=== PATIENT | male | born 1955 | race Caucasian/White ===

== ENCOUNTER 2018-01-29 08:30 | Observation (INO) | payer BC, OTHER ==
[2018-01-29] MEDS ORDERED: Ertapenem 1 GM Vial IVPUSH ONE (08:56)
--- NOTE | 2018-01-29 09:01 | EDM.PDOC ---
ED HPI GENERAL MEDICAL PROBLEM - General Chief Complaint: Skin Complaint Stated Complaint: DIABETIC-SWOLLEN FOOT Time Seen by Provider: 01/29/18 08:45 Source of Information: Reports: Patient History Limitations: Reports: No Limitations - History of Present Illness INITIAL COMMENTS - FREE TEXT/NARRATIVE: Pt. presents to ER with complaints of swelling and erythema to the L foot. Denies any fever or chills. States that he has had an ulcer on the side of the foot for some time, but noticed the erythema and swelling this AM. He is a diabetic, and only takes Metformin. Denies any chest pain or shortness of breath. He states that he does smoke and drink daily as well. Onset: Today Duration: Constant Location: Reports: Lower Extremity, Left Quality: Reports: Burning Right Feet Pain Score (Numeric/FACES): 3 - Related Data Allergies Allergy/AdvReac Type Severity Reaction Status Date / Time venom-honey bee Allergy Swelling Verified 01/29/18 09:18 [bee venom (honey bee)] hydrochlorothiazide AdvReac Muscle Verified 01/29/18 10:10 [From Dyazide] Aches triamterene [From Dyazide] AdvReac Muscle Verified 01/29/18 10:10 Aches Home Meds: Home Meds Lisinopril [Prinivil] 20 mg PO DAILY 06/26/13 [History] metFORMIN [Glucophage] 850 mg PO BID 06/26/13 [History] Aspirin [Children's Aspirin] 81 mg PO DAILY 04/01/14 [History] Cyanocobalamin (Vitamin B-12) [B-12] 500 mcg PO DAILY 04/01/14 [History] Carboxymethyl/Gly/Poly80/Pf [Refresh Optive Advanced Drops] 1 drop EYEBOTH BEDTIME 01/29/18 [History] Cinnamon Bark [Cinnamon] 1,000 mg PO DAILY 01/29/18 [History] Past Medical History HEENT History: Reports: Other (See Below) Other HEENT History: presbyopia, tinnitis both ears Cardiovascular History: Reports: High Cholesterol, Hypertension Respiratory History: Reports: COPD Gastrointestinal History: Reports: GERD Musculoskeletal History: Reports: Osteoarthritis Endocrine/Metabolic History: Reports: Diabetes, Type II, Other (See Below) Other Endocrine/Metabolic History: Vitamin B12 deficiency Social & Family History - Tobacco Use Smoking Status *Q: Current Every Day Smoker Years of Tobacco use: 50 Packs/Tins Daily: 1 - Alcohol Use Days Per Week of Alcohol Use: 7 Number of Drinks Per Day: 2 Total Drinks Per Week: 14 - Recreational Drug Use Recreational Drug Use: No ED ROS GENERAL - Review of Systems Review Of Systems: See Below Constitutional: Reports: No Symptoms HEENT: Reports: No Symptoms Respiratory: Reports: No Symptoms Cardiovascular: Reports: No Symptoms Endocrine: Reports: Other GI/Abdominal: Reports: No Symptoms : Reports: No Symptoms Musculoskeletal: Reports: Other (L foot pain, swelling) Skin: Reports: Erythema, Wound Neurological: Reports: No Symptoms Psychiatric: Reports: No Symptoms Hematologic/Lymphatic: Reports: No Symptoms ED EXAM, SKIN/RASH Exam: See Below Exam Limited By: No Limitations General Appearance: Alert, WD/WN, No Apparent Distress Respiratory/Chest: No Respiratory Distress, Lungs Clear, Normal Breath Sounds, No Accessory Muscle Use, Chest Non-Tender Cardiovascular: Normal Peripheral Pulses, Regular Rate, Rhythm, No Edema, No Gallop, No JVD, No Murmur, No Rub Peripheral Pulses: 3+: Posterior Tibial (L), Dorsalis Pedis (L) Extremities: Increased Warmth, Other (erythema and edema to top of L foot surrounding a dried, closed ulcer) Course - Vital Signs Last Recorded V/S: Last Vital Signs Temp 36.7 C 01/29/18 10:15 Pulse 92 01/29/18 10:15 Resp 16 01/29/18 10:15 BP 125/67 01/29/18 10:15 Pulse Ox 97 01/29/18 10:15 - Orders/Labs/Meds Orders: Active Orders 24 hr Category Date Time Status CULTURE BLOOD [BC] Stat Lab 01/29/18 08:59 Received CULTURE BLOOD [BC] Stat Lab 01/29/18 09:05 Received Sodium Chloride 0.9% [Saline Flush] Med 01/29/18 08:48 Active 10 ml FLUSH ASDIRECTED PRN Blood Culture x2 Reflex Set [OM.PC] Stat Oth 01/29/18 08:48 Ordered Peripheral IV Insertion Adult [OM.PC] Routine Oth 01/29/18 08:48 Ordered Medication Orders Enoxaparin Sodium (Lovenox) 40 mg SUBCUT DAILY@1200 [place] Vancomycin HCl 1,750 mg/ (Sodium Chloride) 250 mls @ 143 mls/hr IV STAT ONE Stop: 01/29/18 11:45 Vancomycin HCl 1,750 mg/ (Sodium Chloride) 250 mls @ 143 mls/hr IV Q12H [place] Ertapenem 1 gm/ Sodium (Chloride) 100 mls @ 200 mls/hr IV Q24H [place] Sodium Chloride (Saline Flush) 10 ml FLUSH ASDIRECTED PRN PRN Reason: Keep Vein Open Last Admin: 01/29/18 09:07 Dose: 10 ml Labs: Laboratory Tests 01/29/18 01/29/18 01/29/18 Range/Units 09:05 09:05 09:05 WBC 7.9 (4.0-10.0) x10^3/uL RBC 4.67 (4.5-6.0) x10^6/uL Hgb 14.8 (14.0-18.0) g/dL Hct 43.1 (40.0-52.0) % MCV 92.3 (78.0-93.0) fL MCH 31.7 (26.0-32.0) pg MCHC 34.3 (32.0-36.0) g/dL RDW Coeff of Skip 14.0 (10.0-15.0) % Plt Count 149 (130-400) x10^3/uL Neut % (Auto) 65.6 (50.0-80.0) % Lymph % (Auto) 22.6 L (25.0-50.0) % [place] % (Auto) 9.0 (2.0-11.0) % Eos % (Auto) 2.7 (0.0-4.0) % Baso % (Auto) 0.1 L (0.2-1.2) % PT 9.7 (9.6-11.4) SEC INR 0.9 L (2.0-3.5) Sodium 138 (136-145) mmol/L Potassium 3.8 (3.5-5.1) mmol/L Chloride 102 (98-107) mmol/L Carbon Dioxide 27 (21-32) mmol/L Anion Gap 12.8 (10-20) mmol/L BUN 15 (7-18) mg/dL Creatinine 1.1 (0.70-1.30) mg/dL Est Cr Clr Drug Dosing 77.68 mL/min Estimated GFR (MDRD) > 60 Glucose 249 H (74-106) mg/dL Lactic Acid (0.4-2.0) mmol/L Calcium 8.6 (8.5-10.1) mg/dL Corrected Calcium 9.24 (8.5-10.1) mg/dL Total Bilirubin 1.3 H (0.2-1.0) mg/dL AST 11 L (15-37) U/L ALT 20 (16-63) U/L Alkaline Phosphatase 48 (46-116) U/L C-Reactive Protein 7.9 H (<=0.9) mg/dL Total Protein 7.1 (6.4-8.2) g/dL Albumin 3.2 L (3.4-5.0) g/dL Globulin 3.9 Albumin/Globulin Ratio 0.82 / Range/Units 09:05 WBC (4.0-10.0) x10^3/uL RBC (4.5-6.0) x10^6/uL Hgb (14.0-18.0) g/dL Hct (40.0-52.0) % MCV (78.0-93.0) fL MCH (26.0-32.0) pg MCHC (32.0-36.0) g/dL RDW Coeff of Skip (10.0-15.0) % Plt Count (130-400) x10^3/uL Neut % (Auto) (50.0-80.0) % Lymph % (Auto) (25.0-50.0) % [place] % (Auto) (2.0-11.0) % Eos % (Auto) (0.0-4.0) % Baso % (Auto) (0.2-1.2) % PT (9.6-11.4) SEC INR (2.0-3.5) Sodium (136-145) mmol/L Potassium (3.5-5.1) mmol/L Chloride (98-107) mmol/L Carbon Dioxide (21-32) mmol/L Anion Gap (10-20) mmol/L BUN (7-18) mg/dL Creatinine (0.70-1.30) mg/dL Est Cr Clr Drug Dosing mL/min Estimated GFR (MDRD) Glucose (74-106) mg/dL Lactic Acid 2.5 H* (0.4-2.0) mmol/L Calcium (8.5-10.1) mg/dL Corrected Calcium (8.5-10.1) mg/dL Total Bilirubin (0.2-1.0) mg/dL AST (15-37) U/L ALT (16-63) U/L Alkaline Phosphatase (46-116) U/L C-Reactive Protein (<=0.9) mg/dL Total Protein (6.4-8.2) g/dL Albumin (3.4-5.0) g/dL Globulin Albumin/Globulin Ratio Meds: Medications Generic Name Dose Route Start Last Admin Trade Name Freq PRN Reason Stop Dose Admin Enoxaparin Sodium 40 mg 01/29/18 12:00 Lovenox SUBCUT DAILY@1200 [place] Vancomycin HCl 1,750 mg/ 250 mls @ 143 mls/hr 01/29/18 10:01 Sodium Chloride IV 01/29/18 11:45 STAT ONE Vancomycin HCl 1,750 mg/ 250 mls @ 143 mls/hr 01/29/18 22:30 Sodium Chloride IV Q12H [place] Ertapenem 1 gm/ Sodium 100 mls @ 200 mls/hr 01/30/18 09:00 Chloride IV Q24H [place] Sodium Chloride 10 ml 01/29/18 08:48 01/29/18 09:07 Saline Flush FLUSH 10 ml ASDIRECTED PRN Administration Keep Vein Open Discontinued Medications Generic Name Dose Route Start Last Admin Trade Name Freq PRN Reason Stop Dose Admin Ertapenem 1 gm 01/29/18 08:56 01/29/18 09:01 Invanz IVPUSH 01/29/18 08:57 1 gm STAT ONE Administration Departure - Departure Time of Disposition: 10:26 Disposition: Refer to Observation Clinical Impression: Cellulitis, Diabetic foot ulcer - Discharge Information - My Orders Last 24 Hours: My Active Orders 01/29/18 08:48 Sodium Chloride 0.9% [Saline Flush] 10 ml FLUSH ASDIRECTED PRN Blood Culture x2 Reflex Set [OM.PC] Stat Peripheral IV Insertion Adult [OM.PC] Routine 01/29/18 08:59 CULTURE BLOOD [BC] Stat 01/29/18 09:05 CULTURE BLOOD [BC] Stat - Assessment/Plan Last 24 Hours: My Active Orders 01/29/18 08:48 Sodium Chloride 0.9% [Saline Flush] 10 ml FLUSH ASDIRECTED PRN Blood Culture x2 Reflex Set [OM.PC] Stat Peripheral IV Insertion Adult [OM.PC] Routine 01/29/18 08:59 CULTURE BLOOD [BC] Stat 01/29/18 09:05 CULTURE BLOOD [BC] Stat Plan: He will be admitted observation. Did discuss acute admission with Dr. Peralta but she declined. Will start Invanz 1 gm daily and Vancomycin 1750mg twice daily. Pharmacy to manage vanco dosing. He is a code 1. Lovenox for DVT prophylaxis. Will trend his lactic acid and recheck it in 6 hours.
[2018-01-29] MEDS: Sodium Chloride 0.9% 10 ML Syringe FLUSH PRN (09:07)
[2018-01-29 09:32] LABS: CHLORIDE,CL 102 mmol/L (98-107); SODIUM,NA 138 mmol/L (136-145)
[2018-01-29 09:44] LABS: ANION GAP 12.8 mmol/L (10-20)
[2018-01-29] MEDS ORDERED: Nicotine 14 MG/24 Hr Patch TRDERM SCH (11:30)
[2018-01-29] MEDS ORDERED: Enoxaparin 40 MG/0.4 ML Syringe SUBCUT SCH (12:00)
[2018-01-30] MEDS: Sodium Chloride 0.9% 10 ML Syringe FLUSH PRN ×2 (00:12→08:14)
--- NOTE | 2018-01-30 00:37 | PCM.PN ---
- General Info Date of Service: 01/30/18 Admission Dx/Problem (Free Text): left foot cellulitis Subjective Update: Pt was admitted to observation for a right lower extremity cellulitis. Patient is brought to the emergency department with increasing redness and swelling of the right lower extremity and also Noted the sore on his pinky toe getting larger. He states he is noticed over the course of the past couple days that his foot has increased in swelling and redness. She does not have much feeling not right lower extremity for peripheral neuropathy secondary to his type 2 diabetes. He states the main concern that he noticed was a large name sore on his right pinky toe that was accumulating more fluid. he currently denies any fever. He states he is not sure if he has ever experienced a fever with this foot concern for he does not check his temperature. He has been chilled the past couple days despite the warm temperatures. currently he is being treated with vancomycin and Invanz for empiric treatment and possible MRSA coverage. Patient does not have a history of MRSA and currently does not have any draining wounds to culture. Patient has been tolerating a diabetic diet, urinating, and ambulating without complications or concerns. Functional Status: Reports: Pain Controlled, Tolerating Diet, Urinating - Review of Systems General: Reports: No Symptoms HEENT: Reports: No Symptoms Pulmonary: Reports: No Symptoms Cardiovascular: Reports: No Symptoms Gastrointestinal: Reports: No Symptoms Genitourinary: Reports: No Symptoms Musculoskeletal: Reports: Foot Pain Skin: Reports: No Symptoms Neurological: Reports: No Symptoms Psychiatric: Reports: No Symptoms - Patient Data Vitals - Most Recent: Last Vital Signs Temp 36.0 C 01/29/18 22:00 Pulse 96 01/29/18 22:00 Resp 20 01/29/18 22:00 BP 121/61 01/29/18 22:00 Pulse Ox 96 01/29/18 22:00 Weight - Most Recent: 138.527 kg I&O - Last 24 Hours: Intake & Output 01/29/18 01/29/18 01/30/18 14:59 22:59 06:59 Intake Total 360 360 285 Output Total 500 Balance 360 -140 285 Lab Results Last 24 Hours: Laboratory Results - last 24 hr 01/29/18 01/29/18 01/29/18 Range/Units 09:05 09:05 09:05 WBC 7.9 (4.0-10.0) x10^3/uL RBC 4.67 (4.5-6.0) x10^6/uL Hgb 14.8 (14.0-18.0) g/dL Hct 43.1 (40.0-52.0) % MCV 92.3 (78.0-93.0) fL MCH 31.7 (26.0-32.0) pg MCHC 34.3 (32.0-36.0) g/dL RDW Coeff of Skip 14.0 (10.0-15.0) % Plt Count 149 (130-400) x10^3/uL Neut % (Auto) 65.6 (50.0-80.0) % Lymph % (Auto) 22.6 L (25.0-50.0) % [place] % (Auto) 9.0 (2.0-11.0) % Eos % (Auto) 2.7 (0.0-4.0) % Baso % (Auto) 0.1 L (0.2-1.2) % PT 9.7 (9.6-11.4) SEC INR 0.9 L (2.0-3.5) Sodium 138 (136-145) mmol/L Potassium 3.8 (3.5-5.1) mmol/L Chloride 102 (98-107) mmol/L Carbon Dioxide 27 (21-32) mmol/L Anion Gap 12.8 (10-20) mmol/L BUN 15 (7-18) mg/dL Creatinine 1.1 (0.70-1.30) mg/dL Est Cr Clr Drug Dosing 77.68 mL/min Estimated GFR (MDRD) > 60 Glucose 249 H (74-106) mg/dL POC Glucose (74-106) mg/dL Lactic Acid (0.4-2.0) mmol/L Calcium 8.6 (8.5-10.1) mg/dL Corrected Calcium 9.24 (8.5-10.1) mg/dL Total Bilirubin 1.3 H (0.2-1.0) mg/dL AST 11 L (15-37) U/L ALT 20 (16-63) U/L Alkaline Phosphatase 48 (46-116) U/L C-Reactive Protein 7.9 H (<=0.9) mg/dL Total Protein 7.1 (6.4-8.2) g/dL Albumin 3.2 L (3.4-5.0) g/dL Globulin 3.9 Albumin/Globulin Ratio 0.82 01/29/18 01/29/18 01/29/18 Range/Units 09:05 15:08 16:41 WBC (4.0-10.0) x10^3/uL RBC (4.5-6.0) x10^6/uL Hgb (14.0-18.0) g/dL Hct (40.0-52.0) % MCV (78.0-93.0) fL MCH (26.0-32.0) pg MCHC (32.0-36.0) g/dL RDW Coeff of Skip (10.0-15.0) % Plt Count (130-400) x10^3/uL Neut % (Auto) (50.0-80.0) % Lymph % (Auto) (25.0-50.0) % [place] % (Auto) (2.0-11.0) % Eos % (Auto) (0.0-4.0) % Baso % (Auto) (0.2-1.2) % PT (9.6-11.4) SEC INR (2.0-3.5) Sodium (136-145) mmol/L Potassium (3.5-5.1) mmol/L Chloride (98-107) mmol/L Carbon Dioxide (21-32) mmol/L Anion Gap (10-20) mmol/L BUN (7-18) mg/dL Creatinine (0.70-1.30) mg/dL Est Cr Clr Drug Dosing mL/min Estimated GFR (MDRD) Glucose (74-106) mg/dL POC Glucose 163 H (74-106) mg/dL Lactic Acid 2.5 H* 1.8 (0.4-2.0) mmol/L Calcium (8.5-10.1) mg/dL Corrected Calcium (8.5-10.1) mg/dL Total Bilirubin (0.2-1.0) mg/dL AST (15-37) U/L ALT (16-63) U/L Alkaline Phosphatase (46-116) U/L C-Reactive Protein (<=0.9) mg/dL Total Protein (6.4-8.2) g/dL Albumin (3.4-5.0) g/dL Globulin Albumin/Globulin Ratio Med Orders - Current: Current Medications Aspirin (Halfprin) 81 mg PO MoWeFr@0800 [facility] Cyanocobalamin (Vitamin B12) 500 mcg PO DAILY [facility] Enoxaparin Sodium (Lovenox) 40 mg SUBCUT DAILY@1200 [facility] Last Admin: 01/29/18 11:47 Dose: Not Given Vancomycin HCl 1,750 mg/ (Sodium Chloride) 250 mls @ 143 mls/hr IV Q12H [facility] Last Admin: 01/29/18 22:04 Dose: 143 mls/hr Ertapenem 1 gm/ Sodium (Chloride) 100 mls @ 200 mls/hr IV Q24H [facility] Lisinopril (Prinivil) 20 mg PO DAILY [facility] Metformin HCl (Glucophage) 850 mg PO BIDMEALS [facility] Last Admin: 01/29/18 17:57 Dose: 850 mg Nicotine (Habitrol) 14 mg TRDERM DAILY@1130 [facility] Last Admin: 01/29/18 11:44 Dose: 14 mg Sodium Chloride (Saline Flush) 10 ml FLUSH ASDIRECTED PRN PRN Reason: Keep Vein Open Last Admin: 01/30/18 00:12 Dose: 10 ml Vancomycin HCl (Pharmacy To Dose - Vancomycin) 1 dose .XX ASDIRECTED [facility] Discontinued Medications Aspirin (Halfprin) 81 mg PO DAILY [facility] Ertapenem (Invanz) 1 gm IVPUSH STAT ONE Stop: 01/29/18 08:57 Last Admin: 01/29/18 09:01 Dose: 1 gm Vancomycin HCl 1,750 mg/ (Sodium Chloride) 250 mls @ 143 mls/hr IV STAT ONE Stop: 01/29/18 11:45 Last Admin: 01/29/18 10:45 Dose: 143 mls/hr - Exam Quality Assessment: DVT Prophylaxis, Skin Breakdown General: Alert, Oriented HEENT: Pupils Equal, Pupils Reactive, EOMI Neck: Supple Lungs: Clear to Auscultation, Normal Respiratory Effort Cardiovascular: Regular Rate, Regular Rhythm GI/Abdominal Exam: Normal Bowel Sounds, Soft, Non-Tender, No Distention, No Abnormal Bruit, No Mass Extremities: Slow Capillary Refill, Leg Pain (right foot- swelling, tenderness, redness from toes to ankle joint, quarter size blister ulceration with fluid under skin noted on the lateral aspect of pinky toe ), Increased Warmth, Redness Peripheral Pulses: 1+: Dorsalis Pedis (R), 3+: Posterior Tibial (L), Posterior Tibial (R), Dorsalis Pedis (L) Skin: Warm, Dry, Intact Wound/Incisions: No Drainage, Erythema Neurological: No New Focal Deficit Psy/Mental Status: Alert, Normal Affect, Normal Mood - Problem List Review Problem List Initiated/Reviewed/Updated: Yes - Assessment Assessment:: 1. right foot cellulitis - Plan Plan:: 1. Continue IV antibiotics as prescribed 2. Contact made with Dr. Peralta regarding transferring the pt from observation to acute. Based on the pt's assessment she feels this pt requires higher level of care with possible vascular consult. 3. Consult made with [facility]. Willing to accept however pt is not willing to transport via ambulance. Will look at transferring in the am. [place] suggest contacting after 8am to discuss case with Day shift hospitalist for transfer. 4. Activity and diet orders remain the same 5. Pt is currently denying anything for pain management 6. Labs will be redrawn in the am
[2018-01-30] MEDS ORDERED: Cyanocobalamin (Vitamin B12) 250 MCG Tab PO SCH (08:00)
[2018-01-30] MEDS ORDERED: Lisinopril 20 MG Tab PO SCH (08:00)
[2018-01-30] MEDS ORDERED: Aspirin 81 MG Tab.EC PO SCH (08:00)
[2018-01-30 08:33] LABS: CHLORIDE,CL 105 mmol/L (98-107); SODIUM,NA 138 mmol/L (136-145)
[2018-01-30 08:34] LABS: ANION GAP 10.3 mmol/L (10-20)
[2018-01-30] MEDS ORDERED: Ertapenem 1 GM in Sodium Chloride 0.9% 100 ML IV SCH (09:00)
--- NOTE | 2018-01-30 09:49 | PCM.DCSUM1 ---
Discharge Summary - Hospital Course HPI Initial Comments: 1. right lower leg cellulitis Brief History: Pt was admitted to observation for a right lower extremity cellulitis. Patient is brought to the emergency department with increasing redness and swelling of the right lower extremity and also Noted the sore on his pinky toe getting larger. He states he is noticed over the course of the past couple days that his foot has increased in swelling and redness. She does not have much feeling not right lower extremity for peripheral neuropathy secondary to his type 2 diabetes. He states the main concern that he noticed was a large name sore on his right pinky toe that was accumulating more fluid. he currently denies any fever. He states he is not sure if he has ever experienced a fever with this foot concern for he does not check his temperature. He has been chilled the past couple days despite the warm temperatures. currently he is being treated with vancomycin and Invanz for empiric treatment and possible MRSA coverage. Patient does not have a history of MRSA and currently does not have any draining wounds to culture. Patient has been tolerating a diabetic diet, urinating, and ambulating without complications or concerns. Pt had an uneventful night. Swelling, redness, and tenderness decreased. Pt has remained afebrile. Diagnosis: Stroke: No - Discharge Data Discharge Date: 01/30/18 Discharge Disposition: Home, Self-Care 01 Condition: Good - Patient Summary/Data Consults: Consultations 01/29/18 10:23 Pharmacy Consult [Consult to Pharmacy] [CONS] Routine - Patient Instructions Diet: Heart Healthy Diet Activity: As Tolerated Driving: Do Not Drive Showering/Bathing: May Shower Wound/Incision Care: Keep Operative Site/Wound Site Clean and Dry Notify Provider of: Fever, Increased Pain, Swelling and Redness, Drainage - Discharge Plan *PRESCRIPTION DRUG MONITORING PROGRAM REVIEWED*: Not Applicable *COPY OF PRESCRIPTION DRUG MONITORING REPORT IN PATIENT COLLIN: Not Applicable Home Medications: Home Meds Lisinopril [Prinivil] 20 mg PO DAILY 06/26/13 [History] metFORMIN [Glucophage] 850 mg PO BIDMEALS 06/26/13 [History] Aspirin [Ecotrin] 81 mg PO ASDIRECTED 01/29/18 [History] Carboxymethyl/Gly/Poly80/Pf [Refresh Optive Advanced Drops] 1 drop EYEBOTH BEDTIME PRN 01/29/18 [History] Carboxymethylcell/Glycerin/Pf [Refresh Optive Sensitive Drops] 1 drop EYEBOTH TID PRN 01/29/18 [History] Cinnamon Bark [Cinnamon] 1,000 mg PO DAILY 01/29/18 [History] Cyanocobalamin (Vitamin B-12) [Vitamin B-12] 100 mcg PO DAILY 01/29/18 [History] Patient Handouts: Cellulitis, Adult, [id number] Forms: ED Department Discharge Referrals: Sonam Espinosa PA-C [Primary Care Provider] - - Discharge Summary/Plan Comment DC Time >30 min.: Yes Discharge Summary/Plan Comment: 1. rest 2. Pt will be discharged and be a direct admit to [facility]. Pt is aware after consultation with Dr. Correa that antibiotics could be switched and oral management could be trailed prior to possible needing to transfer to higher level of care. Pt understand that pt may be given IV abx or changed to oral and surgical/vascular consult may not be warranted depending on hospitalist assessment. Pt would still like to transfer for further consultation and management. Dr. Correa is willing to accept this pt as a direct admit. - General Info Functional Status: Reports: Pain Controlled, Tolerating Diet, Ambulating, Urinating - Review of Systems General: Reports: No Symptoms HEENT: Reports: No Symptoms Pulmonary: Reports: No Symptoms Cardiovascular: Reports: No Symptoms Gastrointestinal: Reports: No Symptoms Genitourinary: Reports: No Symptoms Musculoskeletal: Reports: Foot Pain Skin: Reports: Other (redness, swelling, wound) Neurological: Reports: No Symptoms Psychiatric: Reports: No Symptoms - Patient Data Vitals - Most Recent: Last Vital Signs Temp 37.0 C 01/30/18 05:44 Pulse 70 01/30/18 05:44 Resp 19 01/30/18 05:44 BP 130/60 01/30/18 05:44 Pulse Ox 93 L 01/30/18 05:44 Weight - Most Recent: 138.527 kg I&O - Last 24 hours: Intake & Output 01/29/18 01/30/18 01/30/18 22:59 06:59 14:59 Intake Total 360 1005 360 Output Total 500 1200 Balance -140 -195 360 Lab Results - Last 24 hrs: Laboratory Results - last 24 hr 08/31/18 08/31/18 08/31/18 Range/Units 09:05 09:05 15:08 WBC (4.0-10.0) x10^3/uL RBC (4.5-6.0) x10^6/uL Hgb (14.0-18.0) g/dL Hct (40.0-52.0) % MCV (78.0-93.0) fL MCH (26.0-32.0) pg MCHC (32.0-36.0) g/dL RDW Coeff of Skip (10.0-15.0) % Plt Count (130-400) x10^3/uL Neut % (Auto) (50.0-80.0) % Lymph % (Auto) (25.0-50.0) % [place] % (Auto) (2.0-11.0) % Eos % (Auto) (0.0-4.0) % Baso % (Auto) (0.2-1.2) % Sodium 138 (136-145) mmol/L Potassium 3.8 (3.5-5.1) mmol/L Chloride 102 (98-107) mmol/L Carbon Dioxide 27 (21-32) mmol/L Anion Gap 12.8 (10-20) mmol/L BUN 15 (7-18) mg/dL Creatinine 1.1 (0.70-1.30) mg/dL Est Cr Clr Drug Dosing 77.68 mL/min Estimated GFR (MDRD) > 60 Glucose 249 H (74-106) mg/dL POC Glucose (74-106) mg/dL Lactic Acid 2.5 H* 1.8 (0.4-2.0) mmol/L Calcium 8.6 (8.5-10.1) mg/dL Corrected Calcium 9.24 (8.5-10.1) mg/dL Total Bilirubin 1.3 H (0.2-1.0) mg/dL AST 11 L (15-37) U/L ALT 20 (16-63) U/L Alkaline Phosphatase 48 (46-116) U/L C-Reactive Protein 7.9 H (<=0.9) mg/dL Total Protein 7.1 (6.4-8.2) g/dL Albumin 3.2 L (3.4-5.0) g/dL Globulin 3.9 Albumin/Globulin Ratio 0.82 01/29/18 01/30/18 01/30/18 Range/Units 16:41 07:44 07:45 WBC 7.3 (4.0-10.0) x10^3/uL RBC 4.55 (4.5-6.0) x10^6/uL Hgb 14.2 (14.0-18.0) g/dL Hct 42.6 (40.0-52.0) % MCV 93.6 H (78.0-93.0) fL MCH 31.2 (26.0-32.0) pg MCHC 33.3 (32.0-36.0) g/dL RDW Coeff of Skip 13.8 (10.0-15.0) % Plt Count 160 (130-400) x10^3/uL Neut % (Auto) 64.8 (50.0-80.0) % Lymph % (Auto) 21.2 L (25.0-50.0) % [place] % (Auto) 10.6 (2.0-11.0) % Eos % (Auto) 3.0 (0.0-4.0) % Baso % (Auto) 0.4 (0.2-1.2) % Sodium 138 (136-145) mmol/L Potassium 4.3 (3.5-5.1) mmol/L Chloride 105 (98-107) mmol/L Carbon Dioxide 27 (21-32) mmol/L Anion Gap 10.3 (10-20) mmol/L BUN 14 (7-18) mg/dL Creatinine 1.1 (0.70-1.30) mg/dL Est Cr Clr Drug Dosing 77.68 mL/min Estimated GFR (MDRD) > 60 Glucose 238 H (74-106) mg/dL POC Glucose 163 H (74-106) mg/dL Lactic Acid (0.4-2.0) mmol/L Calcium 8.8 (8.5-10.1) mg/dL Corrected Calcium 9.68 (8.5-10.1) mg/dL Total Bilirubin 0.8 (0.2-1.0) mg/dL AST 11 L (15-37) U/L ALT 21 (16-63) U/L Alkaline Phosphatase 46 (46-116) U/L C-Reactive Protein (<=0.9) mg/dL Total Protein 6.8 (6.4-8.2) g/dL Albumin 2.9 L (3.4-5.0) g/dL Globulin 3.9 Albumin/Globulin Ratio 0.74 LIZBETH Results - Last 24 hrs: Microbiology 01/29/18 09:05 Aerobic Blood Culture - Preliminary Blood - Venous - Lab Draw NO GROWTH AFTER 1 DAY Anaerobic Blood Culture - Preliminary NO GROWTH AFTER 1 DAY 01/29/18 08:59 Aerobic Blood Culture - Preliminary Blood - Venous NO GROWTH AFTER 1 DAY Anaerobic Blood Culture - Preliminary NO GROWTH AFTER 1 DAY Med Orders - Current: Current Medications Aspirin (Halfprin) 81 mg PO MoWeFr@0800 [facility] Cyanocobalamin (Vitamin B12) 500 mcg PO DAILY [facility] Last Admin: 01/30/18 08:13 Dose: 500 mcg Enoxaparin Sodium (Lovenox) 40 mg SUBCUT DAILY@1200 [facility] Last Admin: 01/29/18 11:47 Dose: Not Given Vancomycin HCl 1,750 mg/ (Sodium Chloride) 250 mls @ 143 mls/hr IV Q12H [facility] Last Admin: 01/29/18 22:04 Dose: 143 mls/hr Ertapenem 1 gm/ Sodium (Chloride) 100 mls @ 200 mls/hr IV Q24H [facility] Last Admin: 01/30/18 08:14 Dose: 200 mls/hr Lisinopril (Prinivil) 20 mg PO DAILY [facility] Last Admin: 01/30/18 08:13 Dose: 20 mg Metformin HCl (Glucophage) 850 mg PO BIDMEALS [facility] Last Admin: 01/30/18 08:13 Dose: 850 mg Nicotine (Habitrol) 14 mg TRDERM DAILY@1130 [facility] Last Admin: 01/29/18 11:44 Dose: 14 mg Sodium Chloride (Saline Flush) 10 ml FLUSH ASDIRECTED PRN PRN Reason: Keep Vein Open Last Admin: 01/30/18 08:14 Dose: 10 ml Vancomycin HCl (Pharmacy To Dose - Vancomycin) 1 dose .XX ASDIRECTED [facility] Discontinued Medications Aspirin (Halfprin) 81 mg PO DAILY [facility] Ertapenem (Invanz) 1 gm IVPUSH STAT ONE Stop: 01/29/18 08:57 Last Admin: 01/29/18 09:01 Dose: 1 gm Vancomycin HCl 1,750 mg/ (Sodium Chloride) 250 mls @ 143 mls/hr IV STAT ONE Stop: 01/29/18 11:45 Last Admin: 01/29/18 10:45 Dose: 143 mls/hr - Exam General: Reports: Alert, Oriented HEENT: Reports: Pupils Equal, Pupils Reactive, EOMI Neck: Reports: Supple Lungs: Reports: Clear to Auscultation, Normal Respiratory Effort Cardiovascular: Reports: Regular Rate, Regular Rhythm GI/Abdominal Exam: Normal Bowel Sounds, Soft, Non-Tender, No Distention, No Abnormal Bruit Back Exam: Reports: Normal Inspection, Full Range of Motion Extremities: Normal Inspection, Normal Range of Motion, Non-Tender, No Pedal Edema, Normal Capillary Refill Skin: Reports: Warm, Dry, Intact Wound/Incisions: Reports: Drainage, Erythema, Erythema Improving, Decubitis Neurological: Reports: No New Focal Deficit Psy/Mental Status: Reports: Alert, Normal Affect, Normal Mood
[2018-02-01] MEDS ORDERED: Aspirin 81 MG Tab.EC PO SCH (08:00)
== END 2018-01-30 10:05 | disposition home or self-care (01) ==
LOC: VM.ED 08:30 → VM.MS 09:58
PROVIDERS: ADMIT Physician Assistant; ATTEND Physician Assistant
DX: E11.628 Type 2 diabetes mellitus with other skin complications (principal); L03.115 Cellulitis of right lower limb; E11.42 Type 2 diabetes mellitus with diabetic polyneuropathy; Z79.82 Long term (current) use of aspirin; Z79.84 Long term (current) use of oral hypoglycemic drugs; Z79.899 Other long term (current) drug therapy; Z88.8 Allergy status to other drugs, medicaments and biological substances; Z91.030 Bee allergy status; I10 Essential (primary) hypertension; E78.00 Pure hypercholesterolemia, unspecified; J44.9 Chronic obstructive pulmonary disease, unspecified; K21.9 Gastro-esophageal reflux disease without esophagitis; E53.8 Deficiency of other specified B group vitamins; F17.210 Nicotine dependence, cigarettes, uncomplicated
CPT/HCPCS: 36415; 80053; 82962; 83605; 85025; 85610; 86140; 87040; 96365; 96366; 96367; 96374; 96375; 99284; A9270-GY; G0378; J1335; J3370; J7050